=== PATIENT | female | born 1990 | race Two or more races ===

== ENCOUNTER 2017-12-02 00:08 | Emergency (ER) | payer OTHER ==
[~2017-12-02] VITALS: Ht 167.6 cm; Wt 104.5 kg
[~2017-12-02 00:08] MED LIST: IBUP-1222 PO; IRON1TAB60 PO; OXYC-302 PO; PREN1TAB60 PO
[2017-12-02 00:49] LABS: BASOPHILS # (AUTO) 0.04 x10^3/uL (0-0.1); BASOPHILS % (AUTO) 0 % (0-1); EOSINOPHILS # (AUTO) 0.15 x10^3/uL (0-0.4); EOSINOPHILS % (AUTO) 2 % (1-7); LYMPHOCYTES # (AUTO) 3.79 x10^3/uL (1-3.4); LYMPHOCYTES % (AUTO) 38 % (22-44); MD NO; MEAN CORPUSCULAR HEMOGLOBIN 27.5 pg (27.0-34.8); MEAN CORPUSCULAR HGB CONC 32.5 g/dL (32.4-35.8); MEAN CORPUSCULAR VOLUME 84.7 fL (80-100); MEAN PLATELET VOLUME 10.3 fL (7.4-10.4); MONOCYTES # (AUTO) 0.68 x10^3/uL (0.2-0.8); MONOCYTES % (AUTO) 7 % (2-9); NEUTROPHILS # (AUTO) 5.41 x10^3/uL (1.8-6.8); NEUTROPHILS % (AUTO) 54 % (42-75); PLATELET COUNT 212 x10^3/uL (130-400); RED BLOOD COUNT 4.69 x10^6/uL (3.82-5.3); RED CELL DISTRIBUTION WIDTH 12.8 % (9.6-15.2)
[2017-12-02 00:59] LABS: ANION GAP 7 mmol/L (5-15); CALCIUM 9.2 mg/dL (8.5-10.1); CHLORIDE 109 mmol/L (98-107); CREATININE 0.63 mg/dL (0.55-1.02)
[2017-12-02 01:03] LABS: TROPONIN I < 0.015 ng/mL (0.000-0.045)
[2017-12-02 03:54] VITALS: BP 116/71
== END 2017-12-02 03:58 | disposition home or self-care (01) ==
LOC: ED 01:45
DX: R07.89 Other chest pain (principal)
CPT/HCPCS: 36415; 71045; 80048; 82040; 84484; 85025; 85379; 93005; 99285

== ENCOUNTER 2020-12-10 00:22 | Emergency (ER) | payer OTHER ==
[~2020-12-10] VITALS: Ht 165.1 cm; Wt 102.3 kg
[~2020-12-10 00:22] MED LIST changes: -OXYC-302 PO; +OXYC1TAB14 PO
--- NOTE | 2020-12-10 02:35 | NUR ---
PT AMBULATED BACK TO ROOM
[2020-12-10] MEDS ORDERED: ACETAMINOPHEN 500 MG TABLET PO ONE (03:00)
[2020-12-10] MEDS ORDERED: KETOROLAC 30 MG/1 ML IM ONE (03:00)
[2020-12-10] MEDS ORDERED: LIDODERM 5% PATCH TD ONE ×2 (03:00→03:25)
[2020-12-10] MEDS ORDERED: DIAZEPAM 5 MG TABLET PO ONE (03:00)
[2020-12-10] MEDS ORDERED: DIAZEPAM 5 MG TABLET ONE (03:25)
[2020-12-10] MEDS ORDERED: KETOROLAC 60 MG/2 ML ONE (03:25)
[2020-12-10] MEDS ORDERED: ACETAMINOPHEN 500 MG TABLET ONE (03:25)
--- NOTE | 2020-12-10 03:30 | NUR ---
PT PRESENTS TO THE ED WITH BACK PAIN. PT STATES SHE FELT A POP AND CANNOT SIT DOWN. PT LEANING AGAINST THE GURNEY, PLACED IN GOWN.
--- NOTE | 2020-12-10 04:45 | NUR ---
PT REST COMFORTABLY ON [place], DENIES NEEDS AT THIS TIME
[2020-12-10 05:11] VITALS: BP 107/69
--- NOTE | 2020-12-10 05:15 | NUR ---
Patient given discharge instructions and they have confirmed that they understand the instructions. Patient ambulatory with steady gait.
== END 2020-12-10 05:22 | disposition home or self-care (01) ==
LOC: ED 05:16
DX: S39.012A Strain of muscle, fascia and tendon of lower back, initial encounter (principal); M62.830 Muscle spasm of back; X58.XXXA Exposure to other specified factors, initial encounter; Y93.89 Activity, other specified; Y92.89 Other specified places as the place of occurrence of the external cause; Y99.8 Other external cause status
CPT/HCPCS: 72110; 96372; 99284; J1885; J7512